=== PATIENT | male | born 2000 | race Caucasian/White ===

== ENCOUNTER 2023-09-18 15:41 | Emergency (ER) | payer OTHER, SELFPAY ==
[2023-09-18 15:42] VITALS: BP 131/92; PULSE 70; RESP 16; TEMP 36.3; O2SAT 98; BMI 21.7
--- NOTE | 2023-09-18 16:29 | CT_ITS ---
EXAM: CT HEAD WITHOUT INTRAVENOUS CONTRAST CLINICAL INDICATION: fall TECHNIQUE: Multiple axial images were obtained of the head without intravenous contrast. This CT exam was performed using one or more of the following dose reduction techniques: automated exposure control, adjustment of the mA and/or kV according to patient size, and/or use of iterative reconstruction technique. COMPARISON: No relevant prior studies available. FINDINGS: BRAIN AND EXTRA-AXIAL SPACES: Unremarkable. No intra- or extra-axial hemorrhage. No evidence of acute infarct. No intracranial mass or mass effect. There is preservation of the nino/white matter interface. Posterior fossa structures are unremarkable. Ventricles are appropriate for age. No hydrocephalus. Basal cisterns are patent. BONES/JOINTS: Unremarkable. No discrete lytic or blastic abnormalities. SINUSES: There is a retention cyst or polyp in the left maxillary sinus. MASTOID AIR CELLS: Unremarkable. Clear. ORBITS: Visualized globes, extraocular muscles, optic nerves and retrobulbar fat appear unremarkable. CT/Brain/Head without Contrast IMPRESSION: No acute findings in the head/brain. Electronically Signed: Fredi Loco MD at 17:46 EDT ,
--- NOTE | 2023-09-18 16:29 | CT_ITS ---
We are attempting to reach an attending provider to discuss findings. An addendum with communication details will be sent when the communication is complete. EXAM: CT CERVICAL SPINE WITHOUT INTRAVENOUS CONTRAST CLINICAL INDICATION: Trauma TECHNIQUE: Helically acquired images were obtained of the cervical spine without intravenous contrast. 2D reformatted images were reviewed. This CT exam was performed using one or more of the following dose reduction techniques: automated exposure control, adjustment of the mA and/or kV according to patient size, and/or use of iterative reconstruction technique. COMPARISON: No relevant prior studies available. FINDINGS: VERTEBRAE: There is a fracture of the left lamina of C5. There is also a fracture through the left superior and inferior articulating facet of C5. No traumatic subluxation. No discrete lytic or blastic abnormality. Normal craniocervical junction and cervicothoracic junction. DISCS/SPINAL CANAL/NEURAL FORAMINA: Unremarkable. Disc heights are preserved. No critical stenosis. SOFT TISSUES: Unremarkable. No prevertebral soft tissue swelling. LYMPH NODES: Unremarkable. No cervical adenopathy. LUNG APICES: Unremarkable as visualized. Clear. CT/Spine Cervical without Contras IMPRESSION: Fracture of the left lamina of C5. There are also fractures through the the left superior and inferior articulating facet of C5. Electronically Signed: Fredi Loco MD at 17:34 EDT ,
--- NOTE | 2023-09-18 16:39 | EX.ED.DYSGE1 ---
HPI <LALITHA Christensen - Last Filed: 09/18/23 20:17> History of Present Illness Chief Complaint: Other, Pain/Inj Narrative Narrative: Patient is a 22-year-old male with no significant medical history presents to the emergency department with complaints of neck pain, head pain following a mechanical fall that occurred 3 days ago. Patient was on a 10 foot porch roof when he fell forward. Patient dates he landed on his left side, and had to roll. Over the next couple days, the patient had significant neck pain. He went and saw the Ortho physician in [place], they recommended him a CT scan secondary to the pain he has been having. Patient states he still having significant neck pain, intermittent headaches. He denies any LOC at time of the injury. PFSH <LALITHA Christensen - Last Filed: 09/18/23 20:17> [facility] Medical History no medical history Home Medications ibuprofen 600 mg tablet 600 mg PO Q6H PRN PRN pain #20 TABLETS 09/18/23 [Rx Last Taken Unknown] Allergy/AdvReac Type Severity Reaction Status Date / Time No Known Allergies Allergy Verified 09/18/23 15:44 Social History Smoking Status: Never smoker ROS <LALITHA Christensen - Last Filed: 09/18/23 20:17> ROS ED ROS Narrative Constitutional: Negative for fever, chills, weight loss, weakness Eyes: Negative for vision loss, vision change, double vision ENT: Negative for any sore throat, ear pain, congestion Cardiovascular: Negative for any chest pain, tightness, palpitations Respiratory: Negative for any cough, sputum production, hemoptysis, dyspnea, dyspnea on exertion, orthopnea Gastrointestinal: Negative for any abdominal pain, nausea, vomiting, diarrhea, constipation, blood in stool, blood in vomit : Negative for any urinary frequency, dysuria, retention, blood in urine Muscle skeletal: Negative for any back pain. Positive neck pain, Neurological: Negative for any syncope, dizziness. Positive for headache Skin: Negative for any rashes, itching, abrasions, lacerations Psychiatric: Negative for any depression, anxiety, stress, suicidal ideation, homicidal ideation Hematologic: Negative for any excessive bruising, easy bleeding EXAM <LALITHA Christensen Last Filed: 09/18/23 20:17> Physical Exam Narrative Exam Narrative: Vital signs reviewed. HEET: Head normocephalic atraumatic, TMs clear bilaterally. Posterior pharynx is clear, moist mucous membranes. Nares clear bilaterally. Pupils are equal round reactive to light, negative for any hemotympanum, negative for any septal hematoma. Neck: Supple with no lymphadenopathy or tenderness. No signs of meningismus. Neck is stiff, patient does have some pain worse on the left side of his neck, no significant midline spinal tenderness, no step-off deformities. Cardiac: Regular rate and rhythm no murmurs gallops or rubs, equal peripheral pulses bilaterally. Respiratory: Lungs clear to auscultation bilaterally. No chest tenderness. Abdomen: Soft, nontender, nondistended. No abdominal bruit or pulsatile masses. No hepatosplenomegaly Extremities: No peripheral edema, no signs of gross trauma or deformity. Active full range of motion of all extremities. Equal strength to upper and lower extremities. Neuro: Cranial nerves II through XII intact, no focal neurological deficits. Skin: Clean dry and intact with no rash, purpura, petechiae, vesicles or pustules. Backs/flank: No CVA tenderness, no midline spinal tenderness, no deformity. Psych: Normal mood and affect. No SI, HI or acute psychosis. Const Vital Signs: 09/18/23 15:42 09/18/23 17:30 09/18/23 17:42 Temperature 97.4 F L Temperature Source Temporal Pulse Rate 70 60 Respiratory Rate 16 16 Respiratory Effort Normal Non-Labored Respiratory Pattern Normal Blood Pressure 131/92 H 148/91 H Blood Pressure Mean 105 110 Pulse Ox 98 97 Oxygen Delivery Method Room Air Room Air 09/18/23 19:00 09/18/23 19:37 Temperature 97.4 F L Temperature Source Pulse Rate 59 L 76 Respiratory Rate 17 16 Respiratory Effort Respiratory Pattern Blood Pressure 133/83 H 138/87 H Blood Pressure Mean 99 104 Pulse Ox 97 98 Oxygen Delivery Method Room Air Positive well nourished and well developed General Appearance ED: well developed <Dr. José Miguel Nunes, DO - Last Filed: 09/18/23 19:46> Physical Exam Const Vital Signs: 09/18/23 15:42 09/18/23 17:30 09/18/23 17:42 Temperature 97.4 F L Temperature Source Temporal Pulse Rate 70 60 Respiratory Rate 16 16 Respiratory Effort Normal Non-Labored Respiratory Pattern Normal Blood Pressure 131/92 H 148/91 H Blood Pressure Mean 105 110 Pulse Ox 98 97 Oxygen Delivery Method Room Air Room Air 09/18/23 19:00 09/18/23 19:37 Temperature 97.4 F L Temperature Source Pulse Rate 59 L 76 Respiratory Rate 17 16 Respiratory Effort Respiratory Pattern Blood Pressure 133/83 H 138/87 H Blood Pressure Mean 99 104 Pulse Ox 97 98 Oxygen Delivery Method Room Air MDM <CAMMY ChristensenC - Last Filed: 09/18/23 20:17> [facility] Lab Data Labs: Laboratory Results - last 24 hr 09/18/23 18:25 WBC 9.3 RBC 5.55 Hgb 16.2 Hct 48.8 MCV 87.9 MCH 29.2 MCHC 33.2 RDW Std Deviation 39.8 RDW Coeff of Ángel 12.3 Plt Count 299 MPV 8.4 Immature Gran % (Auto) 0.300 Neut % (Auto) 67.3 Lymph % (Auto) 25.0 Richardson % (Auto) 6.5 Eos % (Auto) 0.5 Baso % (Auto) 0.4 Absolute Neuts (auto) 6.2 Absolute Lymphs (auto) 2.31 Nucleated RBC % 0 Sodium 138 Potassium 4.2 Chloride 104 Carbon Dioxide 30.0 Anion Gap 4 L BUN 11 Creatinine 0.96 Estim Creat Clear Calc 118.75 Est GFR (MDRD) Af Amer 123 Est GFR (MDRD) Non-Af 102 BUN/Creatinine Ratio 11.5 Glucose 97 Calcium 10.0 Radiography Diagnostic Testing: Clinical Impression(s) from Imaging Studies Brain CT 09/18/23 16:29 IMPRESSION: No acute findings in the head/brain. Electronically Signed: Fredi Loco MD at 17:46 EDT , Cervical Spine CT 09/18/23 16:29 IMPRESSION: Fracture of the left lamina of C5. There are also fractures through the the left superior and inferior articulating facet of C5. Electronically Signed: Fredi Loco MD at 17:34 EDT , ADDENDUM: 09/18/23 1748 IMPRESSION: Fracture of the left lamina of C5. There are also fractures through the the left superior and inferior articulating facet of C5. N.B. : The above Results were Read Back by Fredi Loco MD to Juan Torres NP, and understanding confirmed on 09/18/2023 17:41:32 (ET). Electronically Signed: Fredi Loco MD at 17:34 EDT , Treatment and Re-Evaluation :: Differential diagnosis includes however is not limited to: Concussion, cervical strain, cervical fracture, Patient appears to be in no obvious respiratory distress vital signs are stable, patient appears nontoxic. Patient presents to the emergency department with complaints of neck pain, head pain following a fall from a 10 foot roof 3 days ago. Patient did see an orthopedic however they referred him to the emergency department for CAT scans. Patient received a CT scan of the brain, cervical spine. All radiologic examinations were read, reviewed by the emergency department attending. From these reads, a plan of care will be put in place. I spoke with the radiologist. Patient CT scan of the brain shows no acute findings in the head or brain. Patient CT scan of the cervical spine shows a fracture of the left lamina of the C5 there is also fractures through the left superior and inferior articulating facet of C5. At this time, I did reach out to Dr. Venegas who recommend the patient go to a trauma center for further workup and to be seen by neurosurgery. <Dr. José Miguel Nunes, DO - Last Filed: 09/18/23 19:46> [facility] Narrative Medical decision making narrative: I have personally performed a face to face assessment of the patient and have reviewed the SHIRLEY Note. I performed a substantive portion of the visit including all aspects of the following. My muñoz findings include: History: Patient presents with neck pain that began after a fall 3 days ago. Patient states he fell approximately 10 feet off of the roof. Patient denies any loss of consciousness. Patient complains of pain in his neck. Patient describes it as dull and aching. Patient states it is worse with movement. Patient states it is better with rest. Patient denies any paresthesias or weakness. Patient denies any other injuries. Patient was seen at the orthopedic surgeons office today and had x-rays which were negative. Patient was referred to the emergency department for CT scan evaluation of the cervical spine. Exam: Vital signs are stable. Patient is afebrile. Patient is in no acute distress. There is tenderness and spasm of the cervical paraspinal muscles. There is mild midline tenderness. There is no bony crepitance or step-off. Range of motion was limited in all motions of the cervical spine secondary to pain. Strength is 5/5 bilateral in the upper and lower extremities. There are no sensory deficits noted. Medical Decision Making: Differential diagnosis includes closed head injury, cervical spine fracture, and cervical strain. CT scan of the brain will be obtained to assess for intracranial bleeding. CT scan of the cervical spine will be obtained to assess for cervical spine fracture. CT scan of the cervical spine was obtained. There is a fracture of the left lamina of the C5 vertebrae. There are also fractures of the left superior and inferior facets of C5. This was interpreted by the radiologist was also independently reviewed by myself. CT scan of the brain was obtained. There is no acute intracranial abnormality. This was interpreted by the radiologist and was also independently reviewed by myself. CBC was obtained to assess for leukocytosis and anemia. This was reviewed and was within normal limits. Basic metabolic profile was obtained to assess for electrolyte abnormality and renal function. This was reviewed and was within normal limits. Case was discussed with Dr. Venegas. He recommended transferring patient to a trauma center. Patient was agreeable with this. Patient will be transferred to [facility] for trauma evaluation. Lab Data Labs: Laboratory Results - last 24 hr 09/18/23 18:25 WBC 9.3 RBC 5.55 Hgb 16.2 Hct 48.8 MCV 87.9 MCH 29.2 MCHC 33.2 RDW Std Deviation 39.8 RDW Coeff of Ángel 12.3 Plt Count 299 MPV 8.4 Immature Gran % (Auto) 0.300 Neut % (Auto) 67.3 Lymph % (Auto) 25.0 Richardson % (Auto) 6.5 Eos % (Auto) 0.5 Baso % (Auto) 0.4 Absolute Neuts (auto) 6.2 Absolute Lymphs (auto) 2.31 Nucleated RBC % 0 Sodium 138 Potassium 4.2 Chloride 104 Carbon Dioxide 30.0 Anion Gap 4 L BUN 11 Creatinine 0.96 Estim Creat Clear Calc 118.75 Est GFR (MDRD) Af Amer 123 Est GFR (MDRD) Non-Af 102 BUN/Creatinine Ratio 11.5 Glucose 97 Calcium 10.0 Radiography Diagnostic Testing: Clinical Impression(s) from Imaging Studies Brain CT 09/18/23 16:29 IMPRESSION: No acute findings in the head/brain. Electronically Signed: Fredi Loco MD at 17:46 EDT , Cervical Spine CT 09/18/23 16:29 IMPRESSION: Fracture of the left lamina of C5. There are also fractures through the the left superior and inferior articulating facet of C5. Electronically Signed: Fredi Loco MD at 17:34 EDT , ADDENDUM: 09/18/23 1748 IMPRESSION: Fracture of the left lamina of C5. There are also fractures through the the left superior and inferior articulating facet of C5. N.B. : The above Results were Read Back by Fredi Loco MD to Juan Torres NP, and understanding confirmed on 09/18/2023 17:41:32 (ET). Electronically Signed: Fredi Loco MD at 17:34 EDT , Discharge Plan Triage Chief Complaint: Other, Pain/Inj ED Midlevel Provider: Juan Torres ED Provider: Schwiger,José Miguel Dx/Rx/DC Orders Clinical Impression: Concussion, Fall, C5 cervical fracture Prescriptions: New ibuprofen 600 mg tablet 600 mg PO Q6H PRN PRN (Reason: pain) Qty: 20 0RF Primary Care Provider: Neftali Gavin Disposition Disposition: Acute Care Hospital Discharge Location: [facility]
[2023-09-18 17:42] VITALS: BP 148/91; PULSE 60; RESP 16; O2SAT 97
--- NOTE | 2023-09-18 18:26 | ED.RN ---
ACCEPTED AT [facility] ED, RITO ETA 2HRS([id number]) PHYSICIANS CALLED BACK GIVING 1930 NEW ETA.
[2023-09-18 18:50] LABS: Absolute Lymphocyte Count 2.31 X10^3/uL (0.83-4.51); Absolute Neutrophil Count 6.2 X10^3/uL (2.0-7.7); Basophil# 0.04 X10^3/uL; Basophil% 0.4 % (0-1); Eosinophil# 0.05 X10^3/uL; Eosinophils% 0.5 % (0-5); Hematocrit 48.8 % (40-54); Hemoglobin 16.2 g/dL (13.0-16.5); Lymphocyte # 2.31 X10^3/ul (0.83-4.51); Mean Corp Hgb Conc 33.2 g/dL (32-36); Mean Corpuscular Hgb 29.2 pg (27.0-32.0); Mean Corpuscular Volume 87.9 fL (80-94); Mean Platelet Vol. 8.4 fl (6.2-12.0); Monocyte% 6.5 % (0-10); NRBC Flagged by Analyzer 0 % (0-5); Neutrophil # 6.22 X10^3/uL (2.7-7.7); Neutrophil % 67.3 % (47-70); Platelet Count 299 K/mm3 (150-450); RBC Distribution Width CV 12.3 % (11.6-14.6); RBC Distribution Width SD 39.8 fl (35.1-43.9); Red Blood Count 5.55 M/mm3 (4.6-6.2); White Blood Count 9.3 K/mm3 (4.4-11.0)
[2023-09-18 19:00] VITALS: BP 133/83; PULSE 59; RESP 17; O2SAT 97
--- NOTE | 2023-09-18 19:00 | ED.RN ---
Report called to Luis Paige
[2023-09-18 19:05] LABS: Anion Gap 4 (5-15); BUN 11 mg/dL (7-18); BUN/Creat Ratio 11.5 RATIO (10-20); Chloride 104 mmol/L (98-107); Creatinine, Serum 0.96 mg/dL (0.70-1.30); EST Glomerular Filtration Rate 102 mL/min (>60); Est Glom Filt Rate - Afr Amer 123 mL/min (>60); Estimated Creatinine Clearance 118.75 ml/min; Glucose 97 mg/dL (74-106); Potassium 4.2 mmol/L (3.5-5.1); Sodium Level 138 mmol/L (136-145)
[2023-09-18 19:37] VITALS: BP 138/87; PULSE 76; RESP 16; TEMP 36.3; O2SAT 98
== END 2023-09-18 20:26 | disposition short-term general hospital (02) ==
PROVIDERS: Nurse Practitioner; Emergency Provider Emergency Medicine; PCP Family Medicine; Visit Provider Emergency Medicine
DX: S06.0X0A Concussion without loss of consciousness, initial encounter (principal); S12.400A Unspecified displaced fracture of fifth cervical vertebra, initial encounter for closed fracture; W19.XXXA Unspecified fall, initial encounter
CPT/HCPCS: 70450; 72125; 80048; 85025; 99284; A4216